=== PATIENT | female | born 1995 | race Caucasian/White ===

== ENCOUNTER 2016-10-12 01:03 | Inpatient (IN) | payer OTHER ==
--- NOTE | ~2016-10-12 | HP ---
Unit #: [id number] #: [id number] Patient: NII SHANKS [id number] [place] [address] [id number] MR#: [id number] NAME: NII SHANKS ROOM: P125 Age: 21 Sex: F Admission Date: 10/12/2016 : 1995 Attending Physician: Suraj Ponce M.D. Admitting Physician: Suraj Ponce M.D. Primary Care Physician: Sin Green M.D. HISTORY AND PHYSICAL HISTORY OF PRESENT ILLNESS Nii is a 21 year old admitted to [address] [place] [address] because of her drug use. She shoots heroin. PAST MEDICAL HISTORY 1. Long history of opioid abuse to include IV heroin. 2. History of withdrawal seizures. PAST SURGICAL HISTORY Nothing reported. ALLERGIES No known drug allergies. SOCIAL HISTORY She smokes 1 pack per day. Denies alcohol. Admits to a long history of opioid abuse to include IV heroin. FAMILY HISTORY Medically noncontributory. REVIEW OF SYSTEMS CONSTITUTIONAL: No fever or chills. HEENT: Denies any sore throat, ear pain or runny nose. CARDIOVASCULAR: Denies chest pain, irregular heart rhythm or palpitations. CHEST: Denies shortness of breath or cough. No hemoptysis. GASTROINTESTINAL: Denies nausea, vomiting, diarrhea or chronic constipation. ENDOCRINE: Denies history of increased thirst or urination. No recent significant weight loss or gain. GENITOURINARY: Denies dysuria, frequency, or hematuria. SKIN: Denies any rashes. HEMATOLOGIC: Denies history of increased bleeding or bruising. MUSCULOSKELETAL: Denies any hot, swollen joints. No generalized muscle pain. NEUROLOGIC: Denies problems with vision or speech. No frequent, severe headaches. No numbness, tingling or weakness in any extremities. Denies loss of bladder or bowel control. CURRENT MEDICATIONS Detox protocol. PHYSICAL EXAMINATION Unit #: [id number] #: [id number] Patient: NII SHANKS GENERAL: Alert, well-nourished, in no apparent distress. VITAL SIGNS: Blood pressure 110/60, heart rate 80, respirations 16, temperature 98.6. WEIGHT: 130. HEIGHT: 5 feet 4 inches. SKIN: Warm and dry without rash or lesion. HEENT: Normocephalic. TMs not viewed. Oral and nasal passages clear. Conjunctivae clear. PERRLA. EOMs intact. NECK: Supple without lymphadenopathy or thyromegaly. HEART: Regular rate and rhythm without murmur. LUNGS: Clear. ABDOMEN: Soft, nontender. : Not done. EXTREMITIES: No evidence of cyanosis, clubbing or edema. Moves all without focal deficit. NEUROLOGICAL: Grossly within normal limits. Cranial Nerves: II: Visual gonzales are intact. III, IV AND : Extraocular movements are intact. Pupils are equal, round and reactive to light. V: Facial sensation is grossly normal. VII: Facial movements and expression are normal. VIII: Auditory acuity grossly intact. IX, X: Uvula is midline. Phonation is normal. XI: Patient shrugs shoulders and turns head normally. XII: Tongue protrudes in the midline. Sensory and Motor Function: Sensory and motor sensation is grossly normal. Motor: moves all extremities well. Coordination: Gait is normal. Deep Tendon Reflexes: Intact. IMPRESSION Psychiatric admission. RECOMMENDATIONS PSYCHIATRIC: Per psychiatrist. MEDICAL: See no contraindications to participate in facility's activities. MEDICAL PROGNOSIS Good. MEDICAL CONDITION Stable. Dictated by... Karen Colón P.A.-C. for Rishi Mondragon/kassy TD: 10/12/2016 21:09 JOB #: [id number] Unit #: [id number] #: [id number] Patient: NII SHANKS HISTORY AND PHYSICAL X Karen Colón X HISTORY AND PHYSICAL
--- NOTE | ~2016-10-12 | DS ---
Unit #: [id number] #: [id number] Patient: NII SHANKS [id number] [facility] [address] [place] [address] [id number] MR#: [id number] NAME: NII SHANKS ROOM: [facility] Age: 21 Sex: F Admission Date: 10/12/2016 : 1995 Discharge Date: 10/13/2016 Attending Physician: Suraj Ponce M.D. Primary Care Physician: Sin Green M.D. DISCHARGE SUMMARY REASON FOR ADMISSION Ms Shanks is a 20-year-old woman who reports she has been using half a gram of heroin daily for several years. She said that when she is unable to continue drug use, she has active detox symptoms and reported some suicidal ideation with no specific plan. She was admitted for stabilization. HOSPITAL COURSE The patient was admitted and placed on the opioid detox protocol. Physical examination was conducted and was within normal limits. The patient enrolled in dual diagnosis groups and activities. The following day, she continued to report detox symptomatology, but denied suicidal ideation. That afternoon, she went to the nursing staff, requesting discharge against medical advice. She continued to be free of suicidal ideation, and although she was encouraged to stay for more substance abuse care, she was granted her right to discharge against medical advice. DISCHARGE DIAGNOSES AXIS I: Opioid dependence with withdrawal, uncomplicated. AXIS II: No diagnosis. AXIS III: Opioid withdrawal syndrome. AXIS IV: AXIS V: DISCHARGE INSTRUCTIONS She was offered followup to the intensive outpatient program at this facility. DISCHARGE MEDICATIONS None. CONDITION AT DISCHARGE Fair. PROGNOSIS Fair. DIET AND ACTIVITY Ad renato. Dictated by... Unit #: [id number] #: [id number] Patient: NII SHANKS Suraj Ponce M.D. MRH/modl TD: 12/18/2016 23:57 JOB #: [id number] DISCHARGE SUMMARY Page 1 of 1 X Suraj Ponce MD X DISCHARGE SUMMARY
--- NOTE | ~2016-10-12 | PA ---
Unit #: [id number] #: [id number] Patient: NII SHANKS [id number] [facility] [address] [place] [address] [id number] MR#: [id number] NAME: NII SHANKS ROOM: P125 Age: 21 Sex: F Admission Date: 10/12/2016 : 1995 Date of Assessment: 10/12/2016 Attending Physician: Suraj Ponce M.D. Admitting Physician: Suraj Ponce M.D. Primary Care Physician: Sin Green M.D. PSYCHIATRIC ASSESSMENT DATE OF SERVICE 10/12/2016. INFORMANTS The patient, reliable; OLOP, reliable. CHIEF COMPLAINT Detox and suicidal ideation. HISTORY OF PRESENT ILLNESS Nii Shanks is a 21-year-old woman, who reports using half a gram of heroin daily for several years and feels increasingly hopeless, helpless, and suicidal. She reports active detox symptoms when she is unable to continue drug use. She was unable to contract for safety and was admitted for detox and stabilization. PAST PSYCHIATRIC HISTORY One previous treatment episode at [facility] earlier this year. The patient also reports that she is dating a man who abuses substances as well. She has no current psychiatric medication plan. FAMILY PSYCHIATRIC HISTORY There is a family history of chemical dependence. SOCIAL HISTORY The patient is unemployed and completed the 11th grade. She is currently living with her father with no income. She does have a boyfriend, but unfortunately he is also using drugs. PAST MEDICAL HISTORY No chronic medical problems. MEDICATIONS None currently. ALLERGIES No known medication allergies. SUBSTANCE USE HISTORY As noted above. MENTAL STATUS EXAMINATION Nii presented as a mildly disheveled woman, who appeared her stated Unit #: [id number] #: [id number] Patient: NII SHANKS age. She was cooperative with the examination. Her vital signs were temperature 98.6, blood pressure 117/74, respirations 17, pulse 91. Her speech was spontaneous and easily understood. Musculoskeletal examination was calm. Her mood was anxious with a congruent affect. She was alert and fully oriented. Her memory and concentration were fair to good. Her thought processes were goal directed with no active psychosis. She admitted some suicidal thoughts prior to coming to the hospital, but denied at this point. Insight and judgment, fair. Fund of knowledge and abstraction, fair. ASSETS AND LIABILITIES The patient knows local resources and presents voluntarily for treatment. Liabilities include unstable income, ongoing drug use. ADMITTING DIAGNOSES AXIS I: Opioid dependence with withdrawal, uncomplicated, F11.23. AXIS II: No diagnosis. AXIS III: Opioid withdrawal syndrome. AXIS IV: AXIS V: PSYCHIATRIC PLAN The patient was admitted and placed on suicide precautions and the opioid detox protocol. She was transferred to [address] [place] [address] when bed available for more appropriate programming and will enroll in dual diagnosis groups and activities. TREATMENT GOALS Establishment of sobriety, resolution of SI, improvement in insight, and improvement in coping skills. DISCHARGE PLANNING Follow up with community mental health for chemical dependence and mental health resources. ESTIMATED LENGTH OF STAY 5 days. Dictated by... Suraj Ponce M.D. PATSY/veronica TD: 10/13/2016 06:32 JOB #: [id number] PSYCHIATRIC ASSESSMENT X Suraj Ponce MD X PSYCHIATRIC ASSESSMENT
--- NOTE | ~2016-10-12 | PN ---
Unit #: [id number] #: [id number] Patient: NII SHANKS [id number] [facility] [address] [place] [address] [id number] MR#: [id number] NAME: NII SHANKS ROOM: [facility] Age: 21 Sex: F Admission Date: 10/12/2016 : 1995 Attending Physician: Suraj Ponce M.D. Admitting Physician: Suraj Ponce M.D. Primary Care Physician: Rishi Anderson PROGRESS NOTES DATE 10/13/2016 DISCUSSION Nii continues to have active detox symptoms today and is compliant with medications. We have been unable to move her to the detox unit due to the unavailability of beds, so she has not been able to begin 12-step groups at this point. Her mood is mildly dysphoric with a congruent affect and she is alert and fully oriented with no evidence of psychosis. ASSESSMENT Opioid dependence. PLAN Continue with detox protocol. Dictated by... Rishi Ward/ivis TD: 10/14/2016 12:38 JOB #: [id number] DEVAN PROGRESS NOTES X Suraj Ponce MD PROGRESS NOTE
[~2016-10-12 01:03] MED LIST: FLEXERIL10 M1 PO; IBUPROFEN800 MG PO; KEPPRA500 MG; NO MEDICATIONS
[2016-10-12 09:43] LABS: BASOPHIL% 0.6 % (0-2.5); EOSINOPHIL# 0.1 X10e3 (0-0.7); EOSINOPHIL% 1.2 % (0.0-7.0); HEMATOCRIT 39.9 % (35.0-45.0); HEMOGLOBIN 13.3 gm/dL (12.0-16.0); LYMPHOCYTE# 2.2 X10e3 (1.0-3.5); LYMPHOCYTE% 32.9 % (17.0-45.0); MEAN CORPUSCULAR HEMOGLOBIN 28.1 PG (28-34); MEAN CORPUSCULAR HGB CONC 33.4 g/dL (30-36); MEAN PLATELET VOLUME 7.7 FL (6.5-11.5); MONOCYTE# 0.6 X10e3 (0-1.0); MONOCYTE% 9.4 % (3.0-12.0); NEUTROPHIL# 3.8 X10e3 (1.5-7.1); NEUTROPHIL% 55.9 % (40-75); PLATELET COUNT 314 X10e3 (140-420); RED BLOOD COUNT 4.75 X10e (3.90-5.30); WHITE BLOOD COUNT 6.7 X10e3 (4.0-10.5)
[2016-10-12 09:44] LABS: ALBUMIN SERUM 3.8 g/dL (3.5-5.0); ALKALINE PHOSPHATASE 67 U/L (32-92); ALT (SGPT) 100 U/L (10-40); AST (SGOT) 56 U/L (10-42); BILIRUBIN,TOTAL 0.7 mg/dL (0.2-2.0); BLOOD UREA NITROGEN 10 mg/dL (9-23); BUN/CREATININE RATIO 16.66; CALCIUM SERUM 9.6 mg/dL (8.4-10.2); CARBON DIOXIDE 25 mmol/L (22-31); CHLORIDE 105 mmol/L (100-111); CREATININE SERUM 0.6 mg/dL (0.6-1.4); GLOM FILT RATE Estimated ABOVE60 mL/min (>60); GLUCOSE FASTING 97 mg/dL (70-110); POTASSIUM 4.1 mmol/L (3.5-5.1); PROTEIN TOTAL SERUM 7.4 g/dL (6.0-8.3); SODIUM 139 mmol/L (135-145)
[2016-10-12 09:49] LABS: DIFF IND NO
== END 2016-10-13 13:40 | disposition left against medical advice (07) | DRG 894 ==
LOC: P1S 01:03
PROVIDERS: Psychiatry & Neurology Psychiatry
DX: F11.23 Opioid dependence with withdrawal (principal); F17.210 Nicotine dependence, cigarettes, uncomplicated
CPT/HCPCS: 80053; 85025

== ENCOUNTER → 2016-11-02 21:30 | Emergency (ER) | payer OTHER | END | disposition home or self-care (01) | LOC: CED 21:30 | DX: Z53.21 Procedure and treatment not carried out due to patient leaving prior to being seen by health care provider (principal) ==